=== PATIENT | female | born 1965 | race Caucasian/White ===

== ENCOUNTER 2017-06-19 11:51 | Emergency (ER) | payer MEDICAID, SELFPAY ==
--- NOTE | 2017-06-19 12:23 | RAD_ITS ---
STUDY: X-RAY - UNILATERAL RIBS ( RIGHT ) WITH CHEST REASON FOR EXAM: Female, 52 years old. Right lower rib pain. No known injury. TECHNIQUE - RIBS: 4 view(s) of the ribs. TECHNIQUE - CHEST: Single PA view of the chest. COMPARISON: Comparison is made with prior chest radiograph dated November 13, 2013. FINDINGS - RIBS: Normal visualized ribs without a demonstrated fracture. FINDINGS - CHEST: Stable calcified granuloma in the right midlung. Stable blunting of the left costophrenic angle with mild linear scarring at the lung bases. Normal size heart. Normal mediastinum and yi. Normal visualized pulmonary arteries. Normal visualized aortic arch and descending thoracic aorta. Normal visualized thoracic spine. Normal visualized ribs, clavicles, and shoulders. There is no demonstrated abnormality of the visualized soft tissue structures of the upper abdomen. RAD/Ribs Uni Min 3V w/PA Chest IMPRESSION: RIBS: Normal x-ray examination of the ribs. CHEST: Normal x-ray examination of the chest. Electronically Signed: Rob Washington MD at 13:17 EST Tel [phone], Service support ,
--- NOTE | 2017-06-19 12:26 | ED.VISSUMM ---
- ER Visit Summary Date of Service: 06/19/17 Chief Complaint: Lower lateral rib cage chest wall pain History of Present Illness: The patient is a 52 F prior history of PEs after miscarriage. She states that she is having right lower rib cage chest wall pain since Thursday. Since she woke up with it one morning. Denies any fall or trauma. Recently had a URI and thought she pulled something with coughing. She denies any hemoptysis. She denies any shortness of breath. It is not pleuritic. It is worse with movement. No leg pain or swelling. No calf pain. Physical Examination: Well-appearing middle-age female. Vital signs are stable afebrile. H EENT exam normal. Neck nontender. Lungs clear to auscultation bilaterally. Heart regular rhythm no murmur. Chest wall has reproducible right lower lateral rib cage tenderness. There is no ecchymosis or bruising. No rash. No crepitance no subcu air. No bony deformities. But is definitely tender in one specific spot on the right lower lateral rib cage. There are no signs of trauma. Otherwise chest wall and ribs are nontender. Abdomen is soft and nontender the right upper quadrant is unremarkable. She is moving all 4 extremities. Neurovascular intact. Calves are without tenderness, edema or cords. Neurologically she is awake and alert. Back exam is unremarkable and nontender. Test Results: Chest x-ray with right rib series cardiac silhouette. No rib fracture seen. No pneumothoraces. D-dimer was negative Emergency Department Course and Treatment: Given IV Toradol, morphine and Zofran here is feeling much better. History and exam are consistent with a chest wall strain. She will be discharged to home on Percocet for pain Motrin. Treatment Plan: [] Disposition: discharge Impression: Acute right lower chest wall strain This note was generated with [employer] dictation software. It may contain incorrect words, spelling, and punctuation that were not noted in review of the chart prior to signing ED Disposition - Plan for ED Patient: Chief Complaint: Chest Other Referrals: Care Physician,No Primary [Primary Care Provider] -
[2017-06-19 12:29] VITALS: BP 121/78; PULSE 80; RESP 18; TEMP 37.1; O2SAT 97; BMI 30.8
[2017-06-19] MEDS: Ondansetron 4 MG/2 ML Vial IV (14:32)
[2017-06-19] MEDS: Ketorolac 30 MG/ML Syringe IV (14:32)
[2017-06-19 14:49] LABS: D-Dimer Quantitative (DVT/PE) 0.48 FEU/ug/m (0.27-0.49)
--- NOTE | 2017-06-19 15:29 | ED.DEP ---
ED Disposition - Plan for ED Patient: Disposition: Home or Assisted Living Chief Complaint: Chest Other Instructions: ED Strain Chest Wall Prescriptions: Oxycodone HCl/Acetaminophen [Percocet 7.5-325 mg Tablet] 1 tab PO Q6H PRN PRN #20 tab PRN Reason: Pain Referrals: Shanice Rao MD [STAFF PHYSICIAN] - 1 Week if not improving Additional Instructions: Ice to right chest wall and a pillow for support. Motrin and limited Percocet for pain. Follow-up your primary care physician if not improving.
--- NOTE | 2017-06-19 15:32 | DCINST.ED_ITS ---
ED Disposition - Plan for ED Patient: Disposition: Home or Assisted Living Chief Complaint: Chest Other Instructions: ED Strain Chest Wall Prescriptions: Oxycodone HCl/Acetaminophen [Percocet 7.5-325 mg Tablet] 1 tab PO Q6H PRN PRN # 20 tab PRN Reason: Pain Referrals: Shanice Rao MD [STAFF PHYSICIAN] - 1 Week if not improving Additional Instructions: Ice to right chest wall and a pillow for support. Motrin and limited Percocet for pain. Follow-up your primary care physician if not improving.
[2017-06-19 15:39] VITALS: BP 119/72; PULSE 77; RESP 16; O2SAT 98
== END 2017-06-19 15:40 | disposition home or self-care (01) ==
PROVIDERS: Emergency Provider Emergency Medicine
DX: S29.011A Strain of muscle and tendon of front wall of thorax, initial encounter (principal); Z86.711 Personal history of pulmonary embolism; X58.XXXA Exposure to other specified factors, initial encounter; Y93.84 Activity, sleeping; Y92.003 Bedroom of unspecified non-institutional (private) residence as the place of occurrence of the external cause; Y99.8 Other external cause status
CPT/HCPCS: 71101; 85379; 96374; 96375; 99283; A4216; J2405

== ENCOUNTER 2018-01-07 10:53 | Emergency (ER) | payer MEDICAID, SELFPAY ==
[2018-01-07 10:55] VITALS: BP 127/77; PULSE 78; RESP 16; TEMP 36.4; O2SAT 97; BMI 28.8
--- NOTE | 2018-01-07 11:19 | RAD_ITS ---
STUDY: X-RAY CHEST REASON FOR EXAM: Female, 52 years old. Chest pain and arm pain. TECHNIQUE: Single AP portable view of the chest. COMPARISON: Comparison is made with prior study dated November 13, 2013. FINDINGS: EKG electrodes are seen. Hyperinflation. Stable calcified granulomas in the right hemithorax. There is no demonstrated pleural abnormality. Normal size heart. Normal mediastinum and yi. Normal visualized pulmonary arteries. Normal visualized aortic arch and descending thoracic aorta. Normal visualized thoracic spine. Normal visualized ribs, clavicles, and shoulders. There is no demonstrated abnormality of the visualized soft tissue structures of the upper abdomen. RAD/Chest 1 View (Portable) IMPRESSION: Hyperinflation. No acute abnormality is seen. Electronically Signed: Rob Washington MD at 12:15 EDT Tel [phone], Service support ,
--- NOTE | 2018-01-07 11:19 | EKG12_ITS ---
Test Reason : REPEAT Blood Pressure : / mmHG Vent. Rate : 070 BPM Atrial Rate : 070 BPM P-R Int : 136 ms QRS Dur : 080 ms QT Int : 420 ms P-R-T Axes : 058 052 057 degrees QTc Int : 453 ms Normal sinus rhythm Normal ECG Confirmed by MISBAH WOODS, ATUL ([id number]), assignment editor BENIGNO RUDOLPH ([id number]) on 01/11/2018 3:02:19 PM Referred By: YODIT Confirmed By:ATUL CRAWLEY MD
[2018-01-07 11:22] VITALS: O2SAT 95
[2018-01-07] MEDS: Aspirin 81 MG TAB.CHEW 324 MG PO (11:25)
[2018-01-07 11:34] LABS: Absolute Lymphocyte Count 1.45 X10^3/ul (0.83-4.51); Absolute Neutrophil Count 3.5 X10^3/uL (2.0-7.7); Basophil# 0.01 X10^3/uL; Basophil% 0.2 % (0-1); Eosinophil# 0.11 X10^3/uL; Hemoglobin 12.9 g/dl (12.0-15.0); Lymphocyte # 1.45 X10^3/ul (4.0); Lymphocyte % 26.4 % (19-41); Mean Corp Hgb Conc 32.3 g/gl (32-36); Mean Corpuscular Hgb 30.6 pg (27.0-32.0); Mean Corpuscular Volume 94.8 fL (81-99); Mean Platelet Vol. 9.2 fl (6.2-12.0); Monocyte# 0.46 X10^3/uL; Monocyte% 8.4 % (0-10); Neutrophil # 3.46 X10^3/uL (2.7-7.7); Neutrophil % 62.8 % (47-70); Platelet Count 262 K/mm3 (150-450); RBC Distribution Width CV 13.7 % (11.6-14.6); RBC Distribution Width SD 47.1 fl (35.1-43.9); Red Blood Count 4.22 M/mm3 (4.2-5.4); White Blood Count 5.5 K/mm3 (4.4-11.0)
[2018-01-07 11:36] LABS: POSITIVE COUNT NO; POSITIVE DIFFERENTIAL NO; POSITIVE MORPHOLOGY NO
[2018-01-07 11:58] LABS: Anion Gap 8 (5-15); BUN 22 mg/dL (7-18); BUN/Creat Ratio 31.7 RATIO (10-20); Calcium,Total 8.8 mg/dL (8.5-10.1); Chloride 109 mmol/L (98-107); Creatinine, Serum 0.69 mg/dL (0.55-1.02); EST Glomerular Filtration Rate 93 mL/min (>60); Est Glom Filt Rate - Afr Amer 113 mL/min (>60); Estimated Creatinine Clearance 87.26 ml/min; Glucose 94 mg/dL (74-106); Potassium 3.9 mmol/L (3.5-5.1); Sodium Level 142 mmol/L (136-145)
--- NOTE | 2018-01-07 12:02 | ED.DCSUM_ITS ---
- ER Visit Summary Date of Service: 01/07/18 Chief Complaint: Chest pain History of Present Illness: The patient is a 52 F who presents with chest pain that began approximately 3 hours prior to arrival. Patient describes her pain as aching and burning. Patient states the pain is from the lower extremity radiates to the upper chest. Patient states nothing makes it better or worse. Patient states it feels similar to reflux. Patient admits to some lightheadedness and some palpitations. Patient also admits to a cough. Patient states initially she had some pain in her left arm but this has resolved. Patient states this was aching. Patient also admits to some pain in her jaw. Patient states she has a history of pulmonary embolism in the past but states this pain is different than any of that. Patient denies any cardiac risk factors. Physical Examination: Vital signs are stable. Patient is afebrile. Patient is in no acute distress. Oral mucosa is pink and moist. Neck is supple. Trachea is midline. There is no JVD noted. Heart was regular rate and rhythm. Lungs are clear and equal bilaterally. Abdomen is soft. Bowel sounds are normal. There is no tenderness. There is no rebound or guarding noted. Cranial nerves II through XII are intact. There is no focal motor or sensory deficits noted. Test Results: EKG showed normal sinus rhythm with a rate of 82. There are no acute ST or T-wave changes. CBC, basic metabolic profile, troponin were obtained and were all within normal limits. Portable chest x-ray was obtained and does not show any acute cardiopulmonary process. Emergency Department Course and Treatment: Patient has a HEART score of 2. Patient is a DOLLY score of 1. Given her duration of symptoms is only 3 hours prior to arrival, a delta troponin was obtained was normal. Repeat EKG does not show any acute changes. Patient was advised that she is very low risk for acute cardiac event. Patient was instructed to follow-up with her primary care physician in 5-7 days. Patient understood and was agreeable with the plan. All questions were answered. Disposition: Discharge home Impression: Chest pain This note was generated with [employer] software. It may contain incorrect words, spelling, and punctuation that were not noted in review of the chart prior to signing ED Disposition - Plan for ED Patient: Disposition: Home or Assisted Living Chief Complaint: Chest Pain Diagnosis: Chest pain Instructions: ED Chest Pain Atypical Unkn Cause Referrals: Care Physician,No Primary [Primary Care Provider] -
[2018-01-07] MEDS: Acetaminophen 500 MG Tablet 1000 MG PO (12:55)
--- NOTE | 2018-01-07 12:57 | EKG12_ITS ---
Test Reason : CP Blood Pressure : / mmHG Vent. Rate : 082 BPM Atrial Rate : 082 BPM P-R Int : 138 ms QRS Dur : 082 ms QT Int : 388 ms P-R-T Axes : 057 063 064 degrees QTc Int : 453 ms Normal sinus rhythm Normal ECG Confirmed by MISBAH WOODS, ATUL ([id number]), electronic news gathering editor BENIGNO RUDOLPH ([id number]) on 01/11/2018 3:02:41 PM Referred By: HIPOLITO Confirmed By:ATUL CRAWLEY MD
[2018-01-07 13:32] VITALS: BP 126/78; PULSE 67; RESP 18; O2SAT 99
[2018-01-07 14:26] VITALS: BP 121/81; PULSE 72; RESP 16; O2SAT 97
== END 2018-01-07 14:28 | disposition home or self-care (01) ==
PROVIDERS: Emergency Provider Emergency Medicine
DX: R07.9 Chest pain, unspecified (principal); Z86.711 Personal history of pulmonary embolism
CPT/HCPCS: 71045; 80048; 84484; 85025; 93005; 99285; A4216

== ENCOUNTER 2019-10-01 18:04 | Emergency (ER) | payer MEDICAID, SELFPAY ==
[2019-10-01 18:05] VITALS: BP 153/73; PULSE 98; RESP 16; TEMP 36.2; O2SAT 96; BMI 29.9
--- NOTE | 2019-10-01 18:20 | RAD_ITS ---
STUDY: X-RAY - LEFT FOOT CLINICAL: Female, 54 years old. DORSAL FOOT PAIN S/P FALLING ON STEPS TECHNIQUE: 3 view(s) of the foot. COMPARISON: None. FINDINGS: Normal talus, calcaneus, and tarsal bones. Small plantar calcaneal enthesophyte. Normal visualized subtalar, talonavicular, calcaneocuboid, tarsal and tarsometatarsal articulations. Normal metatarsi. Normal metatarsophalangeal joint of the great toe. Normal tibial and fibular sesamoid bones. Normal interphalangeal joint of the great toe. Normal phalanges of the great toe. Normal second through fifth metatarsophalangeal joints. Normal interphalangeal joints and phalanges of the lesser toes. The soft tissue structures are unremarkable. RAD/Foot min 3 Views IMPRESSION: Normal x-ray examination of the foot. Electronically Signed: Trevor Sandhu MD at 18:34 EDT Tel , Service support ,
--- NOTE | 2019-10-01 18:25 | ED.VIS.GEN ---
History of Present Illness Chief Complaint: Lower Extremity Injury Informant: Patient Onset: Today Narrative: At approximately 1130 hrs. today the patient states that she misstepped going on the stairs and fell down injuring her left foot. She states she felt a loud pop. This been sharp pain to walk on it throbbing at rest. She denies any other injuries. Past Medical History - Allergies and Home Meds Allergies/Adverse Reactions: Allergies No Known Allergies Allergy (Verified 10/01/19 18:05) Primary Care Physician: Shanice Rao MD [Primary Care Provider] - Surgical History: - - Placement of inferior vena cava filter which was removed Smoking Status: Never smoker - Family History Maternal Family History: Reports: Unknown Review of Systems General: Denies: Chills, Fever, Sweats Eyes: Denies: Visual changes - bilaterally, Diplopia ENT: Denies: Rhinorrhea, Sore throat Cardiovascular: Denies: Chest pain, Palpitations Respiratory: Denies: Dyspnea, Cough, Dyspnea on exertion Gastrointestinal: Denies: Abdominal pain, Nausea, Vomiting, Diarrhea, Melena, Hematochezia Genitourinary: Denies: Dysuria, Hematuria, Frequency Musculoskeletal: Reports: Extremity Pain. Denies: Back pain Skin: Denies: Rash, Wounds Neurological: Denies: Headache, Weakness, Numbness Physical Exam Vital Signs/Narrative: Vital Signs Temp Pulse Resp BP Pulse Ox 10/01/19 18:05 97.1 F L 98 16 153/73 H 96 Inital Vital Signs reviewed: Yes General: Well nourished, Well developed, No Acute Distress Head: Normocephalic, Atraumatic Eyes: Perrl, EOMI ENT: Moist mucous membranes, No rhinorrhea Neck: Supple, Nontender Cardiovascular: Regular rate, Regular rhythm, No murmurs Respiratory: No distress, CTA bilaterally, Chest nontender Abdomen: Soft, Nontender, Nondistended, Normal bowel sounds Back: Nontender, Normal Inspection Extremities: No edema, - - Negative Ortega's test. No medial or lateral malleoli or pain. Patient has some swelling and tenderness to the midfoot. No fifth metatarsal pain. Skin: Normal color, No rash Neurological: Alert, Oriented x3, Cranial nerves II-XII grossly intact, Normal Strength, Normal Sensation Psychological: Normal affect, Normal Mood Diagnostic/Tx/Re-eval Clinical Impression(s) from Imaging Studies Foot X-Ray 10/01/19 18:20 IMPRESSION: Normal x-ray examination of the foot. Electronically Signed: Trevor Sandhu MD at 18:34 EDT Tel , Service support , - Medical Decision Making She will be given [place] would recommend also anti-inflammatories. Will use Wiliam wrap and crutches follow-up podiatry if not improving ED Disposition - Plan for ED Patient: Disposition: Home or Assisted Living Diagnosis: Sprain of left foot Instructions: ED Sprain Foot Prescriptions: Hydrocodone Bitart/Apap 5-325 [[place] 5MG-325MG] 1 tab PO Q6H PRN PRN 3 Days #10 tab PRN Reason: Pain Prescription Printed Referrals: Romelia Dennis DPM [STAFF PHYSICIAN] - 10-14 Days if not better
[2019-10-01] MEDS: Ibuprofen 600 MG Tablet PO (18:44)
[2019-10-01] MEDS: HYDROcodone Bitartrate/Apap 5/325 Tablet PO (18:44)
== END 2019-10-01 18:52 | disposition home or self-care (01) ==
LOC: ED 18:47
PROVIDERS: Emergency Provider Emergency Medicine; PCP Internal Medicine
DX: S93.602A Unspecified sprain of left foot, initial encounter (principal); W10.9XXA Fall (on) (from) unspecified stairs and steps, initial encounter; Y93.01 Activity, walking, marching and hiking; Y92.009 Unspecified place in unspecified non-institutional (private) residence as the place of occurrence of the external cause; Y99.8 Other external cause status
CPT/HCPCS: 73630; 99284

== ENCOUNTER 2020-03-17 19:04 | Emergency (ER) | payer MEDICAID, SELFPAY ==
[2020-03-17 19:06] VITALS: BP 152/84; PULSE 86; RESP 20; TEMP 36.2; O2SAT 98; BMI 30.5
--- NOTE | 2020-03-17 19:17 | EKG12_ITS ---
Test Reason : CP Blood Pressure : / mmHG Vent. Rate : 083 BPM Atrial Rate : 083 BPM P-R Int : 142 ms QRS Dur : 088 ms QT Int : 402 ms P-R-T Axes : 052 059 064 degrees QTc Int : 472 ms Normal sinus rhythm Normal ECG Confirmed by MISBAH WOODS, ATUL ([id number]), script editor LEE ANN MONTEIRO ([id number]) on 03/21/2020 10:28:39 AM Referred By: SIMON Confirmed By:ATUL CRAWLEY MD
[2020-03-17] MEDS: Aspirin 81 MG TAB.CHEW 324 MG PO (19:31)
[2020-03-17 19:38] LABS: Absolute Lymphocyte Count 2.36 X10^3/uL (0.83-4.51); Absolute Neutrophil Count 3.6 X10^3/uL (2.0-7.7); Basophil# 0.04 X10^3/uL; Basophil% 0.6 % (0-1); Eosinophil# 0.13 X10^3/uL; Eosinophils% 1.9 % (0-5); Hematocrit 44.2 % (37-47); Hemoglobin 14.3 g/dL (12.0-15.0); Lymphocyte # 2.36 X10^3/ul (4.0); Lymphocyte % 34.6 % (19-41); Mean Corp Hgb Conc 32.4 g/dL (32-36); Mean Corpuscular Hgb 31.4 pg (27.0-32.0); Mean Corpuscular Volume 96.9 fL (81-99); Mean Platelet Vol. 9.3 fl (6.2-12.0); Monocyte# 0.67 X10^3/uL; Monocyte% 9.8 % (0-10); NRBC Flagged by Analyzer 0 % (0-5); Neutrophil % 52.7 % (47-70); Platelet Count 302 K/mm3 (150-450); RBC Distribution Width CV 13.1 % (11.6-14.6); Red Blood Count 4.56 M/mm3 (4.2-5.4); White Blood Count 6.8 K/mm3 (4.4-11.0)
--- NOTE | 2020-03-17 19:47 | ED.VISSUMM ---
- ER Visit Summary Date of Service: 03/17/20 Chief Complaint: Chest pain and palpitations History of Present Illness: The patient is a [address] Rao. She reports that she has intermittent chest pain for the past 2 weeks. Her last approximate 20 seconds at a time. She describes as an aching pain. It is 4-10 at worst and 2 out of 10 currently. States that she has had approximately 2 times an hour for the past 6 hours. This is not related to exertion. She reports that she was out raking the yard and had no chest pain or shortness of breath with that. Patient reports pain is worsened by nothing and relieved by nothing. She denies any associated nausea, vomiting, diaphoresis, or shortness of breath. She reports that she has had palpitations that are intermittent over the past 2 weeks as well. Describes this as a pounding heart rate. Last approximately 30 to 45 minutes. Is happening 2-3 times a day and seems to be worse at night. She denies any change in medications or taking decongestants. She denies any change in caffeine use. Physical Examination: Vitals: Stable. Afebrile. General: Well-nourished and well-developed. Head: Normocephalic atraumatic. Neck: Supple, no lymphadenopathy. No JVD. Nontender. Cardiovascular: Regular rate and rhythm. No murmurs. Respiratory: No respiratory distress. Clear to auscultation bilaterally. Abdominal: Soft, nontender, nondistended, normal bowel sounds. No guarding, rebound, or peritoneal signs. Back: Nontender. Extremities: Nontender, no edema. Skin: Normal color, no rash. Neurologic: Alert and oriented ?3. Cranial nerves II through XII are intact. Normal strength and sensation. Psych: Normal affect. Test Results: EKG is sinus at 83. Is unchanged from 2018. CBC is normal. Chem-7 is normal. Troponin is negative. D-dimer is negative. TSH is 1.02. Chest x-ray shows no acute disease. Emergency Department Course and Treatment: Patient was given aspirin p.o. She is resting comfortably. She is not having any chest pain currently. Treatment Plan: Patient feels well and would like to go home. She was reassured. She is instructed to follow-up with her primary care physician soon as possible. Return to the emergency department for any worsening symptoms. Disposition: To home in improved and stable condition. Impression: 1. Atypical chest pain. 2. Palpitations. 3. Heart score of 2. 4. DOLLY score of 0. This note was generated with [employer] dictation software. It may contain incorrect words, spelling, and punctuation that were not noted in review of the chart prior to signing ED Disposition - Plan for ED Patient: Instructions: ED Chest Pain Atypical Unkn Cause, ED Palpitations Referrals: Shanice Rao MD [Primary Care Provider] - As soon as possible
[2020-03-17 19:51] LABS: D-Dimer Quantitative (DVT/PE) 0.45 FEU/ug/m (0.27-0.49)
--- NOTE | 2020-03-17 19:55 | RAD_ITS ---
STUDY: X-RAY CHEST REASON FOR EXAM: Female, 55 years old. Chest pain x2 weeks. TECHNIQUE: 1 view COMPARISON: Prior portable chest exam of 01/07/2018 FINDINGS: Lung pugh are remaining well expanded and clear. Chronic scarring of the left costophrenic angle. Calcified granuloma in the right mid lung. Normal size heart. Normal mediastinum and yi. Normal visualized pulmonary arteries. Normal visualized aortic arch and descending thoracic aorta. Normal visualized thoracic spine. Normal visualized ribs, clavicles, and shoulders. There is no demonstrated abnormality of the visualized soft tissue structures of the upper abdomen. RAD/Chest 1 View (Portable) IMPRESSION: No acute cardiopulmonary findings or changes. Negative for new consolidation, focal atelectasis or pleural effusion. Normal cardiac size. Chronic scarring of the left costophrenic angle. Calcified granuloma of the mid right lung. Electronically Signed: Telma De Dios MD at 20:42 EST , Service support ,
[2020-03-17 20:04] LABS: Anion Gap 6 (5-15); BUN 11 mg/dL (7-18); BUN/Creat Ratio 13.2 RATIO (10-20); Calcium,Total 9.1 mg/dL (8.5-10.1); Chloride 105 mmol/L (98-107); Creatinine, Serum 0.83 mg/dL (0.55-1.02); EST Glomerular Filtration Rate 75 mL/min (>60); Est Glom Filt Rate - Afr Amer 91 mL/min (>60); Estimated Creatinine Clearance 67.29 ml/min; Glucose 101 mg/dL (74-106); Potassium 3.7 mmol/L (3.5-5.1); Sodium Level 139 mmol/L (136-145); Thyroid Stim Hormone (TSH) 1.02 uIU/mL (0.358-3.74)
[2020-03-17 20:28] VITALS: BP 128/74; PULSE 82; RESP 17; O2SAT 96
[2020-03-17] MEDS: Acetaminophen 500 MG Tablet 1000 MG PO (20:42)
[2020-03-17 21:07] VITALS: BP 128/79; PULSE 81; RESP 15; O2SAT 97
== END 2020-03-17 21:08 | disposition home or self-care (01) ==
LOC: ED 20:03
PROVIDERS: Emergency Provider Emergency Medicine; PCP Internal Medicine
DX: R07.89 Other chest pain (principal); R00.2 Palpitations
CPT/HCPCS: 71045; 80048; 84443; 84484; 85025; 85379; 93005; 99285

== ENCOUNTER 2022-12-09 13:48 | Emergency (ER) | payer MEDICAID, SELFPAY ==
[2022-12-09 13:50] VITALS: BP 131/74; PULSE 72; RESP 18; TEMP 36.1; O2SAT 96; BMI 29.2
--- NOTE | 2022-12-09 13:58 | RAD_ITS ---
STUDY: X-RAY - RIGHT FOOT CLINICAL: Female, 57 years old. Right foot pain and bruising following injury. TECHNIQUE: 4 view(s) of the foot. COMPARISON: None. FINDINGS: There is a plantar calcaneal spur. Normal visualized subtalar, talonavicular, calcaneocuboid, tarsal and tarsometatarsal articulations. Normal metatarsi. Normal metatarsophalangeal joint of the great toe. Normal tibial and fibular sesamoid bones. Normal interphalangeal joint of the great toe. Normal phalanges of the great toe. Normal second through fifth metatarsophalangeal joints. The nondisplaced oblique fracture through the midportion of the proximal phalanx of the fourth toe. Soft tissue swelling. RAD/Foot min 3 Views IMPRESSION: Nondisplaced oblique fracture through the midportion of the proximal phalanx of the fourth toe. Soft tissue swelling. Electronically Signed: Rob Washington MD at 14:12 EDT ,
--- NOTE | 2022-12-09 16:04 | EDS_ITS ---
HPI History of Present Illness Chief Complaint: Lower Extremity Injury Informant: patient Narrative Narrative: Patient had a blunt injury of her right foot yesterday, she was walking up the steps and her dog was sitting on them, she went to step over the dog and a ccidentally jammed her toe into the step itself. It is more painful and bruised today. She is able to walk no other injuries. No anticoagulants, she is healthy otherwise. PFSH PFSH Medical History no medical history no medical history Home Medications multivitamin with minerals 1 ea PO DAILY 03/17/20 [History Last Taken Unknown] Allergy/AdvReac Type Severity Reaction Status Date / Time No Known Allergies Allergy Verified 12/09/22 13:51 Social History Smoking Status: Never smoker ROS ROS ED Constitutional Constitutional ED: Denies chills or fever(s) Musculoskeletal Musculoskeletal: Reports extremity pain; Denies neck pain Integumentary Denies Abrasions, rash or wounds Neurologic Neurologic: Denies paresthesias or weakness EXAM Physical Exam Const Vital Signs: 12/09/22 13:50 Temperature 97 F L Temperature Source Temporal Pulse Rate 72 Respiratory Rate 18 Blood Pressure 131/74 H Blood Pressure Mean 93 Pulse Ox 96 Oxygen Delivery Method Room Air Positive well nourished and well developed General Appearance ED: well developed and NAD Neck full ROM and supple Back/Spine normal ROM and normal to inspection Extremity Extremity Narrative: Tenderness and swelling to the proximal phalanx of the right fourth toe. There is ecchymosis in this generalized area as well. Nontender throughout the rest of the foot. No subungual hematoma or bleeding. Neuro oriented x3, no focal motor deficits and no sensory deficits noted Sensorium / Orientation: alert Psych mental status grossly normal and thought process normal Skin no wounds Rashes: no rashes MDM MDM MDM Narrative Medical decision making narrative: 4 view x-ray series of the right foot on my interpretation shows an oblique mildly displaced fracture through the proximal phalanx of the fourth toe, radiology in agreement. We will give her a postop shoe, I discussed benson taping it as well to keep it from moving and more painful but she opted not to do this because she is afraid the skin to be more painful. I think if she stays in the postop shoe for now follows up with podiatry as a be reasonable. She was offered analgesics here and declined. Recommended ice and ibuprofen, Tylenol if needed. She is comfortable with that plan. Radiography Diagnostic Testing: Clinical Impression(s) from Imaging Studies Foot X-Ray 12/09/22 13:58 IMPRESSION: Nondisplaced oblique fracture through the midportion of the proximal phalanx of the fourth toe. Soft tissue swelling. Electronically Signed: Rob Washington MD at 14:12 EDT , Discharge Plan Triage Chief Complaint: Lower Extremity Injury ED Provider: Lamonte Cruz Dx/Rx/DC Orders Clinical Impression: Closed fracture of phalanx of right fourth toe Instructions: ED Fracture, Toe, Closed Prescriptions: No Action multivitamin with minerals 1 EACH tablet 1 ea PO DAILY Primary Care Provider: Shanice Rao Referrals: Shanice Rao MD [Primary Care Provider] - Reji Dias DPM [Med Staff - Active Staff] - As soon as possible (call for appt to be seen within the next 1-2 weeks) Disposition Disposition: Home, Self Care
== END 2022-12-09 16:23 | disposition home or self-care (01) ==
PROVIDERS: Emergency Provider Emergency Medicine; PCP Internal Medicine; Visit Provider Emergency Medicine
DX: S92.911A Unspecified fracture of right toe(s), initial encounter for closed fracture (principal); W22.09XA Striking against other stationary object, initial encounter
CPT/HCPCS: 73630; 99283

== ENCOUNTER → 2024-06-01 | Outpatient (CLI) | payer BC, SELFPAY ==
--- NOTE | 2024-06-01 10:08 | BD_ITS ---
PROCEDURE: DEXA BONE DENSITY STUDY REASON FOR EXAM: 59-year-old female. Osteoporosis screening. TECHNIQUE: DEXA scan of the lumbar spine and both hips. COMPARISON: None. FINDINGS: T-SCORES Lumbar spine: T-score -2.6. (Bone mineral density 0.760 g per sq cm. Left hip: T-score -1.6. (Bone mineral density 0.668 g per cm2.) Right hip: T-score -1.7. (Bone mineral density 0.662 g per cm2.) FRAX* Results: 10 Year Probability of Fracture: Hip Fracture(1): 1.4% Major Osteoporotic Fracture(2): 14% *FRAX is a trademark of the [employer]'s [place] for Metabolic Bone Disease, World Health Organization (WHO) Collaborating [place]. 1-The 10-year probability of fracture may be lower than reported if the patient has received treatment. 2-Major Osteoporotic Fracture: Clinical Spine, Forearm, Hip or Shoulder. The T-scores are also available for review on the [facility] PACS or by accessing the [facility] electronic medical record. BD/Dexa Bone Density Study IMPRESSION: Osteoporosis. Reading Location: [place]
== END | disposition home or self-care (01) ==
PROVIDERS: PCP Nurse Practitioner Family; Referring Provider Nurse Practitioner Family; Visit Provider Nurse Practitioner Family
DX: Z13.820 Encounter for screening for osteoporosis (principal); Z87.312 Personal history of (healed) stress fracture
CPT/HCPCS: 77080

== ENCOUNTER → 2024-08-01 | Outpatient (CLI) | payer BC, SELFPAY ==
[2024-08-01 15:52] LABS: Absolute Lymphocyte Count 1.62 X10^3/uL (0.83-4.51); Absolute Neutrophil Count 3.2 X10^3/uL (2.0-7.7); Basophil# 0.04 X10^3/uL; Basophil% 0.7 % (0-1); Eosinophil# 0.13 X10^3/uL; Eosinophils% 2.3 % (0-5); Hematocrit 41.3 % (37-47); Hemoglobin 13.6 g/dL (12.0-15.0); Lymphocyte # 1.62 X10^3/ul (0.83-4.51); Lymphocyte % 28.6 % (19-41); Mean Corp Hgb Conc 32.9 g/dL (32-36); Mean Corpuscular Hgb 31.7 pg (27.0-32.0); Mean Corpuscular Volume 96.3 fL (81-99); Mean Platelet Vol. 9.8 fl (6.2-12.0); Monocyte# 0.65 X10^3/uL; Monocyte% 11.5 % (0-10); NRBC Flagged by Analyzer 0 % (0-5); Neutrophil % 56.5 % (47-70); Platelet Count 217 K/mm3 (150-450); RBC Distribution Width CV 13.2 % (11.6-14.6); RBC Distribution Width SD 46.6 fl (35.1-43.9); Red Blood Count 4.29 M/mm3 (4.2-5.4); White Blood Count 5.7 K/mm3 (4.4-11.0)
[2024-08-01 16:49] LABS: ALB/GLOB Ratio 1.8 RATIO (0.9-2.4); AST(SGOT) 24 U/L (<=31); Alanine Aminotransfer ALT/SGPT 23 U/L (<=34); Albumin, Serum 4.4 g/dL (3.4-4.8); Alkaline Phosphatase 73 U/L (35-104); Anion Gap 12 (5-15); BUN 12 mg/dL (4-19); BUN/Creat Ratio 14.8 RATIO (10-20); Calcium,Total 9.2 mg/dL (7.6-11.0); Carbon Dioxide 24.1 mmol/L (21.0-32.0); Chloride 104 mmol/L (98-108); Cholesterol 165 mg/dL (<=200); EST Glomerular Filtration Rate 84 (>60); Globulin 2.4 g/dL (2.2-4.2); Glucose 77 mg/dL (70-99); High Density Lipoprotein 63 mg/dL; Low Density Lipoprotein Calc. 85 mg/dL; Protein, Total 6.8 g/dL (5.9-8.4); Sodium Level 140 mmol/L (133-145); Total Bilirubin 0.95 mg/dL (0.00-1.30); Triglycerides 90 mg/dL; Very Low Density Lipoprotein 18 mg/dL (5-40); cholesterol:hdl ratio screen 2.64
[2024-08-01 16:53] LABS: Vitamin D,25 Hydroxy 26.8 ng/mL (30-100)
== END | disposition home or self-care (01) ==
PROVIDERS: PCP Nurse Practitioner Family; Visit Provider Nurse Practitioner Family
DX: M81.0 Age-related osteoporosis without current pathological fracture (principal)
CPT/HCPCS: 36415; 80053; 80061; 82306; 85025